=== PATIENT | female | born 1940 | race Caucasian/White ===

== ENCOUNTER 2016-05-28 13:26 | Observation (INO) ==
[2016-05-28] MEDS ORDERED: ASPIRIN 325 MG TABLET PO STA (14:21)
[2016-05-28] MEDS ORDERED: ENOXAPARIN 100 MG/ML SYRINGE SUBCUT STA (14:21)
[2016-05-28] MEDS ORDERED: ONDANSETRON 4 MG/2 ML VIAL IV STA (14:21)
[2016-05-28] MEDS ORDERED: METOPROLOL TARTRATE 5 MG/5 ML VIAL IV STA (14:21)
[2016-05-28] MEDS ORDERED: NITROGLYCERIN 2% OINT 1 INCH/GM PACK TOP STA (14:21)
[2016-05-28] MEDS ORDERED: MORPHINE 2 MG/1 ML SYRINGE IV STA (14:21)
[2016-05-28] MEDS ORDERED: NITROGLYCERIN SL 0.4 MG TABLET SL PRN (14:21)
--- NOTE | 2016-05-28 14:27 | Emergency Department Note ---
Holden Lara Brooke, am scribing for, and in the presence of, Ryan Thomson MD 14:24 . Alix Lara James D, MD, personally performed the services described in this documentation, ascribed by Sushma Hatch in my presence, and it is both accurate and complete 425 . Arrival - Arrival Chief Complaint: Chest Pain Stated Complaint: chest pain ED Nursing Triage Note: pain over left side of chest radiating down arm into elbow that started last night with a tightness up into throat that comes and goes. reports got better last night but started back this morning. Mode of Arrival: Wheelchair Limitations: No Limitations Source: Patient, RN Notes Reviewed Time Seen by Provider: 05/28/16 14:17 - History of Present Illness HPI Narrative: Patient is a 75 year old female who presents to the ED with c/o chest pain that started last night. says the pain is located in the left side of her chest and radiates down into her left arm. She describes the pain as tightness. She says she thought it was acid reflux, so she took some Tums around 0000 last night but states they did not help. Patient denies having nausea or diaphoresis with the chest pain but says she did have some abdominal cramping last night and had three episodes of diarrhea. She says she has had some SOB within the past few weeks, also. Patient does not have any history of heart problems but does have PMHx of lung cancer, bronchitis, bladder spasms, GI polyps, and GERD. Patient has never been a smoker. Her Primary Care Provider is Dr. Torrez. Allergies/Adverse Reactions: Allergies Allergy/AdvReac Type Severity Reaction Status Date / Time No Known Allergies Allergy Unverified 02/24/15 10:42 Home Medications: Home Medications Medication Instructions Recorded Confirmed Type Cetirizine HCl [ZyrTEC Cap] 10 mg PO DAILY 02/24/15 02/24/15 History Niacin 500 mg PO DAILY 02/24/15 02/24/15 History Review of System - Review of System 12 point system: reviewed and no additional remarkable complaints except as stated - Review of System Constitutional: Absent: diaphoresis, fever Respiratory: Present: other (SOB). Absent: respiratory distress Cardiovascular: Present: chest pain (left side) Gastrointestinal: Present: abdominal pain (cramping), diarrhea (three episodes) . Absent: nausea Musculoskeletal: Present: arm pain (left) Skin: Absent: rash Medical,Surgical,& Family Hx - Medical History Respiratory: History of: Bronchitis (IN THE PAST) Genitourinary: History of: Bladder Problem (bladder spasms) Gastrointestinal: History of: GERD, Polyps Musculoskeletal: No history of: Back/Neck Problems Reproductive: No history of: Breast Cancer - Surgical History Cardiac Surgeries: Patient Denies: Cardiac Catheterization Abdominal Surgeries: Surgical HX of: Appendectomy, Colonoscopy, EGD Patient denies: Cholecystectomy Reproductive Surgeries: Surgical HX of;: Breast Surgery (BX IN PAST) Patient denies;: Hysterectomy Orthopedic Surgeries: Patient denies;: Orthopedic Surgery - Social History Smoking Status: Never smoker Exam Vital Signs: Vital Signs Temperature 98.1 F 05/28/16 14:05 Pulse Rate 80 05/28/16 14:05 Respiratory Rate 18 05/28/16 14:05 Blood Pressure 182/105 05/28/16 14:05 O2 Sat by Pulse Oximetry 97 05/28/16 14:05 GENERAL: This is a well-nourished well-developed white female in no apparent distress. VITAL SIGNS: Reviewed HEENT: Head is atraumatic and normocephalic. Pupils are equal round react to light. Extraocular movements are intact. Oropharynx is benign with moist mucous membranes. NECK: Neck is soft and supple without tenderness. There are no masses. There is no lymphadenopathy. LUNGS: Lungs are clear to auscultation. Chest rises symmetrically. There is no chest wall tenderness. CV: Heart is regular rate and rhythm without murmurs rubs or gallops. ABDOMEN: Abdomen is soft, nontender to palpation. There are no abdominal abnormal masses palpated. There is no organomegaly. Bowel sounds are present and active. SKIN: Skin is warm and dry. No rash. EXTREMITIES: Patient has full range of motion without tenderness. There is no pedal edema. NEUROLOGIC: Awake alert and oriented 4. Cranial nerves II through XII are grossly intact. Motor is 5 over 5 in all extremities bilaterally. Course - Consultations Consultation #1: Discussed with hospitalist. Patient will be admitted to their service. Time: 15:21 Results - Labs CBC & BMP: 05/28/16 14:49 Lab Results: I have reviewed the patients labs Labs: Laboratory Tests 05/28/16 14:49 INR 1.1 - EKG EKG results: interpreted by ERMD - Impressions EKG: sinus rhythm with a rate of 78, sinus arrhythmia. Incomplete right bundle branch block, normal axis. Nonspecific ST-T wave changes. - Diagnostic Findings Procedure: Chest x-ray: image reviewed by me (No cardiomegaly, no pleural effusions, no infiltrates.) Disposition Clinical Impression: Chest pain Case discussed with: patient, patient's family Disposition: Still a Patient Condition: Stable
[2016-05-28 14:56] LABS: Basophils % 0.2 % (0.0-0.8); Eosinophils # 0.1 10*3/uL (0.0-0.87); Hematocrit 42.5 VOL% (35.7-47.0); Hemoglobin 14.6 GM/DL (12.0-16.0); Immature Granulocytes % 5.2 %; Immature Granulocytes Absolute 0.26 #; Lymphocytes # 1.4 10*3/uL (1.4-4.0); Lymphocytes % 27.9 % (21.3-54.2); Mean Corpuscular HGB Conc 34.4 GM/DL (32-36); Mean Corpuscular Hemoglobin 32 PG (27-34); Mean Corpuscular Volume 91.8 FL (87-102); Mean Platelet Volume 9.6 FL (9.6-12.0); Monocytes # 0.8 10*3/uL (0.11-0.8); Monocytes % 15.3 % (1.7-12.7); Neutrophils # 2.5 10*3/uL (1.4-7.4); Neutrophils % 50.4 % (38.7-73.9); Platelet Count 186 T/CUMM (130-400); Red Blood Count 4.63 MC/CUMM (3.8-5.5); Red Cell Distribution Width 12.3 % (9.3-17.3)
[2016-05-28] MEDS ORDERED: ENOXAPARIN 100 MG/ML SYRINGE SUBCUT ONE (15:04)
[2016-05-28] MEDS ORDERED: NITROGLYCERIN 2% OINT 1 INCH/GM PACK TOP ONE (15:04)
[2016-05-28] MEDS ORDERED: ONDANSETRON 4 MG/2 ML VIAL ONE (15:04)
[2016-05-28] MEDS ORDERED: MORPHINE 2 MG/1 ML SYRINGE ONE (15:05)
[2016-05-28] MEDS ORDERED: METOPROLOL TARTRATE 5 MG/5 ML VIAL IV ONE (15:05)
[2016-05-28] MEDS ORDERED: ASPIRIN 325 MG TABLET ONE (15:05)
[2016-05-28 15:07] LABS: INR 1.1; PT Patient Result 11.3 SECS; Partial Thromboplastin Time 29.3 SECS (0-40)
--- NOTE | 2016-05-28 15:11 | XRay Report ---
XR chest 2V Date: 05/28/2016 2:21 PM History: Chest pain Comparison: None Technique: PA and lateral chest Findings: The heart is normal in size with left cardiac fat pad. The lungs are clear with unremarkable mediastinum. Degenerative changes are noted. Impression: No acute cardiopulmonary pathology identified. PROCEDURE INTERPRETED AT [facility] DEPARTMENT OF RADIOLOGY Final Report Signed by: Dr. Leida Jones
[2016-05-28 15:23] LABS: Albumin 4.4 G/DL (3.4-5.0); Bilirubin,Total 0.6 MG/DL (0.2-1.0); Osmolality,Calculated 277.4 MOS/KG (273-304); Potassium 4.4 MMOL/L (3.5-5.1); Total Protein 6.9 G/DL (6.4-8.3)
[2016-05-28 15:34] LABS: Apearance,Urine CLEAR (Clear); Bilirubin,Urine Negative (Negative); Blood, Urine Negative (Negative); Glucose,Urine (UA) Negative (Negative); Ketones,Urine Negative (Negative); Nitrite,Urine Negative (Negative); Protein,Urine Negative; RBC,Urine <1 /HPF (0-4); Urine Color Straw (Yellow); Urine Specific Gravity 1.005 (1.001-1.035); Urine Urobilinogen < 2.0 EU/DL (0.2-1.0); WBC,Urine <1 /HPF (0-6)
--- NOTE | 2016-05-28 16:32 | Hospitalist History & Physical ---
Assessment and Plan (1) Chest pain Status: Acute Assessment and plan: Cardiac biomarkers negative. Admit overnight for observation and cardiac workup. Consult cardiology for possible stress test in the morning. Given her history of lung cancer s/p surgical cure 19 years ago, it is prudent to administer a complete cardiac/chest workup. Current Visit: Yes History of Present Illness Chief complaint: chest pain History of present illness: Ms. Garcia is a 75 year old female with known risk factors significant for age , gender, lung cancer and GERD who presents to the ED with complaints of radiating chest pain x 1 day. The patient reports experiencing a sharp pain in her left chest wall that radiated to her left arm with associated pressure in her neck. She admits to contributing this pain to GERD and says she chewed a few TUMS last night with no relief. Though she is currently hypertensive, she denies a history of hypertension, hyperlipidemia, or cardiac arrhythmias. On exam, the pain is non-reproducible to palpation. Cardiac biomarkers are negative. CXR reveals no significant cardiopulmonary abnormalities. She denies headache, blurry vision, current chest pain, palpitations, syncopal episodes, abdominal pain, N/V/D or numbness/tingling. Given her history of lung cancer, gender, age and symptoms she will be admitted to the hospital medicine service for observation. Findings have been discussed with Dr. Hanna who will follow with an addendum and plan. Patient is a full code. Home Medications Medication Instructions Recorded Confirmed Type Cetirizine HCl [ZyrTEC Cap] 10 mg PO DAILY 02/24/15 02/24/15 History Niacin 500 mg PO DAILY 02/24/15 02/24/15 History Allergies Allergy/AdvReac Type Severity Reaction Status Date / Time No Known Allergies Allergy Unverified 02/24/15 10:42 Medical,Surgical,& Family Hx - Medical History Respiratory: History of: Bronchitis (IN THE PAST) Genitourinary: History of: Bladder Problem (bladder spasms) Gastrointestinal: History of: GERD, Polyps Musculoskeletal: No history of: Back/Neck Problems Reproductive: No history of: Breast Cancer - Surgical History Cardiac Surgeries: Patient Denies: Cardiac Catheterization Abdominal Surgeries: Surgical HX of: Appendectomy, Colonoscopy, EGD Patient denies: Cholecystectomy Reproductive Surgeries: Surgical HX of;: Breast Surgery (BX IN PAST) Patient denies;: Hysterectomy Orthopedic Surgeries: Patient denies;: Orthopedic Surgery - Social History Smoking Status: Never smoker Frequency of Alcohol Use: None Type of Drug Use: None Marital Status: Single Lives With:: Alone Functional capacity: independent ambulation 12 point system: reviewed and no additional remarkable complaints except as stated Exam - Constitutional Exam: General appearance: overweight, no acute distress - Head Head exam: Present: normocephalic, atraumatic - Eye Eye exam: Present: EOMI. Absent: conjunctival injection, nystagmus Pupils: Present: TESS, normal accommodation - ENT ENT exam: Present: normal exam, normal external ear exam - Neck Neck exam: Present: normal inspection. Absent: lymphadenopathy, tenderness, thyromegaly - Respiratory Respiratory exam: Present: clear to auscultation bilaterally. Absent: rales, rhonchi, wheezes - Cardiovascular Cardiovascular exam: Present: regular rate and rhythm. Absent: carotid bruit, gallop, rubs - GI/Abdominal GI/Abdominal exam: Present: normal bowel sounds. Absent: ascites, distended, mass - Extremities Exam Extremities exam: Present: normal inspection, normal capillary refill. Absent: edema - Back Exam Back exam: Absent: CVA tenderness (L), CVA tenderness (R) - Neurological Exam Neurological exam: Present: alert, oriented X3 - Psychiatric Psychiatric exam: Present: normal affect, normal mood - Skin Skin exam: Present: normal color, warm, dry Results - Labs CBC & BMP: 05/28/16 14:49 05/28/16 14:49 Lab Results: I have reviewed the past 24 hour labs - EKG EKG results: interpreted by CALOS, sinus rhythm (with sinus arrhythmia) - Diagnostic Findings Procedure: Chest x-ray: image reviewed by me, report reviewed by me
[2016-05-28] MEDS ORDERED: MORPHINE 2 MG/1 ML SYRINGE IV PRN (17:05)
[2016-05-28] MEDS ORDERED: ONDANSETRON 4 MG/2 ML VIAL IV PRN (17:05)
[2016-05-28 17:25] LABS: Eosinophils 1 % (0-10); Lymphocytes 29 % (20-55); Platelet Estimate Normal; Segmented Neutrophils 62 % (50-85); Total Cells Counted 100
[2016-05-28] MEDS ORDERED: ENOXAPARIN 30 MG/0.3 ML SYRINGE SUBCUT SCH (17:30)
--- NOTE | 2016-05-28 17:43 | EKG Report ---
Stationary ECG Study [facility] Test Date: 05/28/2016 5:42:11 PM Pat Name: NORBERTO MEDINA Department: Room: 235 Gender: F [employer]: MEENA : 1940 Requested by: Ryan Day Order Number: [id number] Reading MD: THELMA DÍAZ Intervals [place] Rate: 56 P: 35 NC: 174 QRS: -23 QRSD: 74 T: 14 QT: 399 QTc: 390 Interpretive Statements SINUS RHYTHM WITH SINUS ARRHYTHMIA INFERIOR MYOCARDIAL INFARCTION, PROBABLY OLD Electronically Signed On 05-31-16 12:34:33 CDT by THELMA DÍAZ [email or web address]
--- NOTE | 2016-05-29 06:00 | EKG Report ---
Stationary ECG Study [facility] ER Test Date: 05/28/2016 1:34:19 PM Pat Name: NORBERTO MEDINA Department: Room: 235 Gender: F [employer]el Attacher: : 1940 Requested by: Ryan Day Order Number: [id number] Reading MD: GOPI HERNANDEZ Intervals [place] Rate: 78 P: 48 NM: 166 QRS: 17 QRSD: 80 T: 52 QT: 373 QTc: 406 Interpretive Statements SINUS RHYTHM WITH SINUS ARRHYTHMIA RSR (QR) IN V1/V2 CONSISTENT WITH RIGHT VENTRICULAR CONDUCTION DELAY Electronically Signed On 05-31-16 09:41:49 CDT by GOPI HERNANDEZ [id number]
[2016-05-29 06:50] LABS: Calcium 8.4 MG/DL (8.5-10.1); Magnesium 2.3 MG/DL (1.8-2.4); Potassium 4.3 MMOL/L (3.5-5.1)
[2016-05-29 07:01] LABS: Free T4 (Free Thyroxine) 1.03 NG/DL (0.76-1.46); Risk Ratio 3.04; Thyroid Stimulating Hormone 3.41 uIU/ml (0.358-3.74); VLDL CHOLESTEROL 27.8 MG/DL
--- NOTE | 2016-05-29 08:23 | Cardiology Consult Note ---
Assessment and Plan (1) GERD (gastroesophageal reflux disease) Status: Acute Current Visit: Yes (2) Chest pain Status: Acute Assessment and plan: 1. 75 year-old overweight WF with remote history of lung cancer (according to her right upper obectomy 19 years ago), diverticulosis, GERD, admitted with episodes of chest pain lasting 3-5 minutes typically while she is lying in bed radiating to her left arm at times. 2. Symptoms are unlikely to be angina as she has no exertional symptoms and a known history of GERD; suspect GI source is her symptoms. 3. She is ruled out for UT and has no acute EKG changes 4. Previously on PPI before "weaning myself off"; consider H2 devora or PPI for the time being. 5. Currently she only has complaint of a headache; I removed her nitroglycerin paste. 6. She can be discharged from a cardiac standpoint with outpatient workup. Current Visit: Yes History of Present Illness - Consult Narrative History of present illness: Ms. Garcia is a 75 year old female admitted yesterday with episodes of chest discomfort lasting 3-5 minutes. She developed has some underlying in bed actually has never had them except lying in bed. She has no exertional symptoms. She's had "allergies" with coughing when she is on her exercise program 5 times per week for 30 minutes. She really does not have any dyspnea on exertion of the usual dyspnea which he thinks is related to cutting back on her exercise program and his recent weeks. She has remote history of lung cancer 19 years ago with upper lobe lobectomy. She has history of colonoscopy with polyp removal last year and diverticulosis seen by Dr. Albarado. She quit her PPI about a year ago that she was concerned about long-term side effects from it. Dr. Torrez had recommended cholesterol medicine that she did not want to take it so she takes [id number] niacin. She says it gives her no side effects which she is very happy about. CC: Low Mckeon MD - Home Medications and Allergies Home Medications: Home Medications Medication Instructions Recorded Confirmed Type Niacin 500 mg PO DAILY 02/24/15 05/28/16 History Glucosamine 500 mg PO DAILY 05/28/16 05/28/16 History Levocetirizine Dihydrochloride 5 mg PO DAILY 05/28/16 05/28/16 History [Xyzal] Naproxen Sodium [Aleve] 220 mg PO BID 05/28/16 05/28/16 History Oxybutynin Chloride [Oxybutynin 10 mg PO BID 05/28/16 05/28/16 History Chloride ER] Allergies/Adverse Reactions: Allergies Allergy/AdvReac Type Severity Reaction Status Date / Time No Known Allergies Allergy Unverified 02/24/15 10:42 Medical,Surgical,& Family Hx - Medical History Respiratory: History of: Bronchitis (IN THE PAST), Lung Cancer (19 years ago, in remission) Genitourinary: History of: Bladder Problem (bladder spasms) Gastrointestinal: History of: GERD, Polyps Musculoskeletal: No history of: Back/Neck Problems Reproductive: No history of: Breast Cancer - Surgical History Cardiac Surgeries: Patient Denies: Cardiac Catheterization Thoracic Surgeries: Surgical HX of;: Lobectomy (right upper lobe) Neurologic Surgeries: Patient denies: Neurologic Surgery Abdominal Surgeries: Surgical HX of: Appendectomy (1959), Colonoscopy (february 2015), EGD Patient denies: Cholecystectomy Reproductive Surgeries: Surgical HX of;: Breast Surgery (BX IN PAST) Patient denies;: Hysterectomy Orthopedic Surgeries: Patient denies;: Orthopedic Surgery - Family History Family History: Reports;: Family Heart Disease (father), Family Hypertension ( mother) - Social History Smoking Status: Never smoker Frequency of Alcohol Use: None Type of Drug Use: None Physical Examination Vital Signs Temp Pulse Resp BP Pulse Ox 98.1 F 80 18 182/105 97 05/28/16 14:05 05/28/16 14:05 05/28/16 14:05 05/28/16 14:05 05/28/16 14:05 General: Present: Appears Well, No Apparent Distress Neck: Present: Supple Neck, Midline Trachea, No JVD/HJR, No Bruit Cardiac: Present: Reg Rate and Rhythm, No Murmur. Absent: Diastolic Murmur Lungs: Present: Normal Exam, Clear Ascult./Percussion, Normal Breath Sounds Abdomen: Present: Soft, Non-Tender Extremities: Present: Normal Gait, No Edema Result/EKG - Labs CBC & BMP: 05/28/16 14:49 05/29/16 06:03 Labs: Laboratory Results - last 24 hr 05/28/16 05/28/16 05/29/16 17:40 20:52 06:03 Sodium 143 Potassium 4.3 Chloride 107 Carbon Dioxide 29 Anion Gap 11.3 BUN 15 Creatinine 0.70 GFR Calculation 93 BUN/Creatinine Ratio 21.00 H Glucose 99 Hemoglobin A1c Calculated Osmolality 285.0 Calcium 8.4 L Magnesium 2.3 Troponin I < 0.015 < 0.015 Triglycerides Cholesterol LDL Cholesterol VLDL Cholesterol HDL Cholesterol Heart Disease Risk Ratio Free T4 TSH 3rd Generation 05/29/16 05/29/16 06:03 06:03 Sodium Potassium Chloride Carbon Dioxide Anion Gap BUN Creatinine GFR Calculation BUN/Creatinine Ratio Glucose Hemoglobin A1c 5.6 Calculated Osmolality Calcium Magnesium Troponin I Triglycerides 139 Cholesterol 170 LDL Cholesterol 105.0 VLDL Cholesterol 27.8 HDL Cholesterol 56 Heart Disease Risk Ratio 3.04 Free T4 1.03 TSH 3rd Generation 3.410 Quality Measures - Stroke Symptom Onset Unknown: No
[2016-05-29] MEDS ORDERED: CETIRIZINE 10 MG TABLET PO SCH (09:00)
[2016-05-29] MEDS ORDERED: NIACIN 500 MG TABLET PO SCH (09:00)
[2016-05-29 15:40] VITALS: BP 129/74
--- NOTE | 2016-05-29 16:28 | Discharge Summary ---
Hospital Course - Hospital Course Hospital Course: This is a 75-year-old patient of Dr. Soriano. The patient yu has had reflux symptoms over the last couple of decades. The patient weaned herself off antiacid medications a few months ago and began having recurring gastroesophageal reflux symptoms over the last 2 months. The patient did not restart an antiacid medicine but took some Tums occasionally. The patient had worsening discomfort last night consistent with esophageal spasm. The patient came to the hospital. Myocardial infarction was ruled out by EKG and enzymes. The patient was seen by Dr. Brasher who felt the patient could be safely discharged and have outpatient follow-up. I reviewed the patient's symptoms with her the cause of her symptoms, and the use of Prilosec and Pepcid. We will have her on a 30 day supply of Prilosec and then switch to Pepcid once daily. On the date of discharge, chest clear and abdomen soft. - Time spent with patient Time with patient DS: Greater than 30 minutes Diagnosis - Discharge Diagnosis (1) Chest pain Status: Resolved (2) GERD (gastroesophageal reflux disease) Status: Acute Discharge Plan - Discharge Data Disposition: Disch To Home/Self Care Condition at Discharge: Stable Discharge Diet: heart healthy Activity: increase activity as tolerated - Discharge Medications New Cetirizine Tab [ZyrTEC Tab] 10 mg PO DAILY tablet Continue Niacin 500 mg PO DAILY Levocetirizine Dihydrochloride [Xyzal] 5 mg PO DAILY Glucosamine 500 mg PO DAILY Naproxen Sodium [Aleve] 220 mg PO BID Oxybutynin Chloride [Oxybutynin Chloride ER] 10 mg PO BID - Follow Up or Referral - Forms/Instructions Exam - Constitutional Vitals: Period Temp Pulse Resp BP Sys/Rosales Pulse Ox Last 24 Hr 97.4 F-98.3 F 61-85 16-22 105-162/57-99 94-97 Discharge Results Labs on day of discharge: Labs from last 24 hours 05/29/16 05/29/16 05/29/16 06:03 06:03 06:03 Sodium 143 Potassium 4.3 Chloride 107 Carbon Dioxide 29 Anion Gap 11.3 BUN 15 Creatinine 0.70 GFR Calculation 93 BUN/Creatinine Ratio 21.00 H Glucose 99 Hemoglobin A1c 5.6 Calculated Osmolality 285.0 Calcium 8.4 L Magnesium 2.3 Troponin I Triglycerides 139 Cholesterol 170 LDL Cholesterol 105.0 VLDL Cholesterol 27.8 HDL Cholesterol 56 Heart Disease Risk Ratio 3.04 Free T4 1.03 TSH 3rd Generation 3.410 05/28/16 05/28/16 20:52 17:40 Sodium Potassium Chloride Carbon Dioxide Anion Gap BUN Creatinine GFR Calculation BUN/Creatinine Ratio Glucose Hemoglobin A1c Calculated Osmolality Calcium Magnesium Troponin I < 0.015 < 0.015 Triglycerides Cholesterol LDL Cholesterol VLDL Cholesterol HDL Cholesterol Heart Disease Risk Ratio Free T4 TSH 3rd Generation DS: Provider Date of admission: 05/28/16 15:23 Primary care physician: . No PCP Attending physician on admission: Bonnie Hanna MD Consults: 05/28/16 17:05 Consult to Physician [CONS] Routine Comment: Consulting Provider: Cardiology - [facility] Person Notified: Lulu Date Notified: 05/29/16 Time Notified: 07:57 Consult Notification Comment: consult called questions answered Discharging clinician: Low Mckeon MD
[2016-05-29] MEDS ORDERED: ENOXAPARIN 30 MG/0.3 ML SYRINGE SUBCUT SCH (21:00)
== END 2016-05-29 17:47 | disposition home or self-care (01) ==
LOC: N.ED 13:26 → SUATTDRO 15:23 → INTOOBSV 15:23 → N.EDINP 15:23 → N.2E 16:11
PROVIDERS: ADMIT Family Medicine; ATTEND Internal Medicine